=== PATIENT | female | born 1980 | race Caucasian/White ===

== ENCOUNTER 2016-08-29 22:13 | Emergency (ER) | payer OTHER ==
--- NOTE | 2016-09-01 14:00 | ER ---
ADMIT: 08/29/2016 RM/LOC: ER [facility] MR#: [id number] [address] [id number] CHRISTIANO VALADEZ [address] [address] Emergency Room Report SEX: F AGE: 36 : 1980 DATE: 08/29/2016 See T-sheet for complete H and P. ADDENDUM: A 36-year-old female, presents to the ER complaining of 1 hour of left eye pain. States that she was inadvertently struck with the brim of the cowboy hat in her eye just prior to arrival. Since that time, she has had increasing pain and inability to open her eye and sensitivity to light. She is otherwise healthy, no medical problems, takes no medications, is up-to-date on her tetanus shot. Did use tetracaine to numb her eye and used fluorescein, which demonstrates a relatively large corneal abrasion over her visual field of her left eye over the pupil. No other injuries. Pain was significantly improved with the tetracaine. She was given erythromycin ointment in the Emergency Department and discharged home with the same. She was also given [place] here for pain and will be discharged home with Toradol eye drops also for pain. She is here from out of town in [place] and she will be leaving in the morning to drive home. She is told that she needs to follow up with an eye doctor in [place] in the next 1 to 2 days to see how she is healing and if she still in the area, she needs to follow up with Dr. Rodríguez. DIAGNOSIS: Corneal abrasion, left eye. Eleazar Hastings MD/ xi JOB #: [id number] CC: Des Borja MD, Attending Physician Nathen Rodríguez MD, Family Physician
== END 2016-08-29 23:28 | disposition home or self-care (01) ==
LOC: ER 22:13
DX: S05.02XA Injury of conjunctiva and corneal abrasion without foreign body, left eye, initial encounter (principal); W22.8XXA Striking against or struck by other objects, initial encounter